=== PATIENT | male | born 1985 | race Caucasian/White ===

== ENCOUNTER 2021-06-21 18:00 | Emergency (ER) | payer OTHER ==
--- NOTE | 2021-06-21 18:11 | ERPHSYRPT ---
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 He has a positive D Dimer of 1282 and I am worried about a blood clot.". pt stated "I went to the clinic today and she told me to come here." Triage Nursing Assessment: Pt presented alert and oriented X 3, skin pwd pt ambulates with an upright steady gait, able to speak in clear full sentences pt in no apparent respiratory distress. Pt stated the pain in his ankle has been there for 3 weeks, ever since a couple of days post op. Physician History: This is a 35-year-old male who underwent a left upper extremity surgical procedure for left upper extremity muscle tear approximately 3 weeks ago. Soon after that procedure he noticed worsening pain in his left ankle left calf and left knee. Patient was seen at his work clinic with the above left lower extremity complaints. A D-dimer was ordered and it was elevated. The nurse practitioner wanted to be complete and therefore the patient was sent to the emergency department for venous Doppler to rule out a DVT. Patient has no chest pain and he is not short of breath. Timing/Duration: week(s) (2-3) Severity: mild Modifying Factors: Improves With: nothing Associated Symptoms: denies symptoms Allergies/Adverse Reactions: Penicillins Allergy (Severe, Verified 06/21/21 18:10) [facility] Home Medications: No Reportable Medications [No Reported Medications] 06/21/21 [History] Hx Tetanus, Diphtheria Vaccination/Date Given: Yes Hx Influenza Vaccination/Date Given: No Hx Pneumococcal Vaccination/Date Given: No Immunizations Up to Date: Yes Travel Risk - International Travel Have you traveled outside of the country in past 3 weeks: No - Coronavirus Screening Are you exhibiting any of the following symptoms?: No Close contact with a COVID-19 positive Pt in past 14-21 Days: No - Vaccine Status Have you recieved a Covid-19 vaccination: No - Review of Systems Constitutional: No Symptoms Eyes: No Symptoms Ears, Nose, & Throat: No Symptoms Respiratory: No Symptoms Cardiac: No Symptoms Abdominal/Gastrointestinal: No Symptoms Genitourinary Symptoms: No Symptoms Musculoskeletal: Other (Left below the knee pain/achiness) Skin: No Symptoms Neurological: No Symptoms Psychological: No Symptoms Endocrine: No Symptoms Hematologic/Lymphatic: No Symptoms Immunological/Allergic: No Symptoms All Other Systems: Reviewed and Negative - Past Medical History Pertinent Past Medical History: No - Past Surgical History Past Surgical History: Yes Other Surgical History: right leg. right thumb. tongue. left elbow - Social History Smoking Status: Never smoker Exposure to second hand smoke: No Drug Use: none Patient Lives Alone: No - Nursing Vital Signs Nursing Vital Signs: Initial Vital Signs Temperature 97.8 F 06/21/21 18:04 Pulse Rate 96 H 06/21/21 18:04 Respiratory Rate 22 06/21/21 18:04 Blood Pressure 145/84 06/21/21 18:04 O2 Sat by Pulse Oximetry 98 06/21/21 18:04 Pain Scale Pain Intensity 2 - Physical Exam General Appearance: no apparent distress, alert Eye Exam: PERRL/EOMI, eyes nml inspection Ears, Nose, Throat Exam: normal ENT inspection, moist mucous membranes Neck Exam: normal inspection, non-tender, supple, full range of motion Respiratory Exam: airway intact, No chest tenderness, No respiratory distress Cardiovascular Exam: regular rate/rhythm, normal heart sounds, normal peripheral pulses Gastrointestinal/Abdomen Exam: No tenderness Rectal Exam: not done Back Exam: normal inspection, normal range of motion, No CVA tenderness, No vertebral tenderness Extremity Exam: normal inspection, normal range of motion, pelvis stable, tend erness (Left ankle left calf left knee) Neurologic Exam: alert, oriented x 3, cooperative, fuel operator II-XII nml as tested, normal mood/affect, nml cerebellar function, nml station & gait, sensation nml Skin Exam: normal color, warm, dry Lymphatic Exam: No adenopathy SpO2 Interpretation: normal SpO2: 98 O2 Delivery: Room Air - Course Nursing assessment & vital signs reviewed: Yes Ordered Tests: Active Orders 24 hr Category Date Time Status VENOUS UNILAT/LIMITED EXTREMIT [US] Routine Exams 06/21/21 19:05 Ordered VENOUS UNILAT/LIMITED EXTREMIT [US] Stat Exams 06/21/21 18:13 Ordered - Progress Progress: unchanged Progress Note: 06/21/21 20:01 Venous Doppler of left lower extremity and left upper extremity reveals no evidence of any deep venous thrombosis. 06/21/21 20:02 The x-ray results for the patient's left knee and left ankle that were done as an outpatient are not reported yet. This was told to the patient Counseled pt/family regarding: diagnosis, need for follow-up, rad results - Departure Departure Disposition: Home Clinical Impression: Left leg pain Condition: Stable Critical Care Time: No Referrals: DOCTOR,NO FAMILY [Primary Care Provider] - Additional Instructions: Follow-up with your nurse practitioner for further management of your condition
[2021-06-21 20:29] VITALS: O2SAT 98
[2021-06-21 20:31] VITALS: BP 142/80; PULSE 88
--- NOTE | 2021-06-21 20:38 | XRAY ---
Exam: Left lower extremity duplex Doppler venous ultrasound exam from 06/21/2021. Comparison: None. Indication: Left lower extremity pain and elevated d-dimer. Technique: Andrews scale images, color blood flow images, and Doppler tracings without and with Doppler signal augmentation were obtained throughout the left lower extremity. Findings: Microfilm Camera Operator images of the left common femoral vein, proximal, mid, and distal superficial femoral vein, popliteal vein, and distal posterior tibial veins reveal normal transducer compression, color blood flow imaging, and Doppler signal augmentation throughout. The left profunda femoral vein reveals normal color blood flow and Doppler signal augmentation. The greater saphenous vein near the superficial femoral vein junction reveals normal transducer compression and color blood flow imaging. Impression: 1. I see no evidence of deep venous thrombosis within the left lower extremity. 2. Neither was there evidence of superficial venous thrombosis near the greater saphenous vein-superficial femoral vein junction.
--- NOTE | 2021-06-21 20:44 | XRAY ---
Exam: Left upper extremity duplex Doppler venous ultrasound exam from 06/21/2021. Comparison: None. Indication: The patient is about one month postop surgery within the left upper extremity (surgery not specified). He complains of left upper extremity pain. He also has an elevated d-dimer. Technique: Andrews scale images, color blood flow images, and Doppler tracings were obtained of the left internal jugular vein, proximal and distal left subclavian vein, axillary vein, cephalic vein, proximal and distal brachial veins, basilic vein, radial vein, and ulnar vein. Findings: Normal transducer compression, color flow imaging, and Doppler signal augmentation were seen throughout the studied left upper extremity veins. I see no evidence of venous thrombosis. Impression: 1. No evidence of DVT within the left upper extremity.
== END 2021-06-21 20:31 | disposition home or self-care (01) ==
LOC: ED 18:00
DX: M79.662 Pain in left lower leg (principal); M96.89 Other intraoperative and postprocedural complications and disorders of the musculoskeletal system; R79.89 Other specified abnormal findings of blood chemistry
CPT/HCPCS: 93971; 99283